=== PATIENT | male | born 1965 | race Caucasian/White ===

== ENCOUNTER 2019-04-12 16:01 | Emergency (ER) | payer BC, SELFPAY ==
[2019-04-12 16:10] VITALS: BP 136/96; PULSE 75; RESP 16; TEMP 36.5; O2SAT 99
[2019-04-12 17:13] LABS: Abs Immature Grans 0.01 k/cumm (0.0-0.09); Absolute Basophil Count 0.03 k/cumm (0.0-0.2); Absolute Eosinophil Count 0.11 k/cumm (0.0-0.7); Absolute Lymphocyte Count 1.66 k/cumm (1.2-3.4); Absolute Monocyte Count 0.75 k/cumm (0.11-0.7); Absolute Neutrophil Count 5.93 k/cumm (1.2-6.7); Basophils % 0.4; Eosinophils % 1.3; HCT 46.8 % (40.0-50.0); HGB 16.4 g/dL (13.5-17.5); Immature Grans % 0.1; Lymphocytes % 19.6; Mean Corpuscular Hemoglobin 31.7 pg (27.0-33.0); Mean Corpuscular Volume 90.3 fL (80-95); Mean Platelet Volume 11.3 fL (8.0-11.0); Monocytes % 8.8; Neutrophils % 69.8; Platelet Count 188 x1000/uL (130-400); RBC 5.18 m/cumm (4.50-6.00); RBC Distribution Width 12.8 % (11.8-14.1); White Blood Cell Count 8.49 k/cumm (4.4-10.8)
[2019-04-12 17:22] LABS: C-Reactive Protein 1.36 mg/dL (0.0-0.3)
[2019-04-12 17:25] LABS: PTT Activated 25.6 sec (21.0-31.4); Prothrombin Time 10.1 sec (9.3-11.0)
[2019-04-12 17:26] LABS: ALT 23 U/L (12-78); AST 11 U/L (15-37); Albumin 4.3 g/dL (3.4-5.0); Alkaline Phosphatase 120 U/L (46-116); Anion Gap 10.3 mmol/L (3-11); BUN 27 mg/dL (7-18); Bilirubin, Total 0.6 mg/dL (0.2-1.0); CO2 27.7 mmol/L (21.0-32.0); CREATININE 0.89 mg/dL (0.70-1.30); Calcium 9.4 mg/dL (8.5-10.1); Chloride 103 mmol/L (98-107); Glucose 101 mg/dL (70-100); Potassium 3.7 mmol/L (3.5-5.1); Sodium 141 mmol/L (136-145); Total Protein 7.9 g/dL (6.4-8.2)
[2019-04-12 17:55] LABS: ESR 17 mm/hr (1-20)
--- NOTE | 2019-04-12 18:46 | ED.GENADUL_ITS ---
Discharge Plan Disposition Patient Disposition: HOME Condition: Stable Discharge Details Chief Complaint: Orthopedic Clinical Impression: Right shoulder pain, Rash and nonspecific skin eruption Primary Care Provider: Katelynn Dial ED Provider: Choco Adame Home Meds and New Rx's Prescriptions: New doxycycline hyclate 100 mg tablet 100 mg PO BID 14 Days Qty: 28 RF: 0 cephalexin [Keflex] 500 mg capsule 500 mg PO QID 7 Days Qty: 28 RF: 0 Discharge Instructions Instructions: Acute Rash (ED), Shoulder Pain (ED) Additional Instructions: Please take antibiotics as prescribed and follow-up with your primary care provider for reassessment as needed. Return to the emergency department for any new or significant worsening. Otherwise take anabolic's as prescribed Referrals: Katelynn Dial, CHIEF BUSINESS OFFICER [Primary Care Provider] - 1 week (As needed for reassessment or if not improving) Discharge Data Discharge Date/Time-TO BE ENTERED AT DEPARTURE: 04/12/19 18:58 Medical Decision Making Patient presenting the emergency department for chief complaint of right shoulder pain. Patient denies any injury or trauma that he knows. Patient states that pain started 5 days ago with discomfort to the superior aspect of the shoulder where he thought he strained a muscle. Then over the last couple days he has noticed increased discomfort and pain. He states with light touch it feels itchy otherwise pain was severe stinging deep touch. Physical exam shows that patient has painful but full range of motion of right upper extremity. He has a mild erythematous rash that encompasses the shoulder and anterior upper chest wall and posterior chest. Please see exam for visual picture of this area of erythema. This does not appear consistent with shingles but question of cellulitis versus tickborne illness causing myalgias and rash. Plan to check labs. Labs reviewed and show no leukocytosis, nondiagnostic CMP, mildly elevated CRP at 1.36 and ESR within normal range. Given unremarkable labs I do feel that patient is able to be safely discharged but I do feel this is a odd rash. Given question of differential diagnosis to include tickborne illness versus cellulitis due to this patient placed up on doxycycline and Keflex pending tickborne panel. Return precautions were discussed and patient clearly states understanding for worsening rapid spread of rash fever chills that he should return. Otherwise patient to follow-up with primary care provider for reassessment HPI General Mode of arrival: ambulatory . Date/Time Provider Initiated Documentation: 04/12/19 16:23 . Limitations to Documentation: no limitations . Information obtained by: patient and RN notes reviewed . History of Present Illness 53 year old M presents to the emergency department with the chief complaint of Right shoulder pain, with intensity rated at 7. Quality is described as aching, and is localized to the right. Patient started experiencing this day(s) (5) and it has been constant. No relieving factors improve symptom(s), No exacerbating factors reported . Patient notes no other symptoms.. Patient did receive the following treatments prior to arrival, none Related Data Home Medications Medication Instructions Recorded Confirmed cephalexin [Keflex] 500 mg PO QID 7 Days #28 cap 04/12/19 doxycycline hyclate 100 mg PO BID 14 Days #28 tab 04/12/19 Previous Rx's Medication Instructions Recorded cephalexin [Keflex] 500 mg PO QID 7 Days #28 cap 04/12/19 doxycycline hyclate 100 mg PO BID 14 Days #28 tab 04/12/19 Allergies Allergy/AdvReac Type Severity Reaction Status Date / Time No Known Allergies Allergy Unverified 02/22/16 13:12 General Stated Complaint: Orthopedic GALE: 3 Review of Systems Constitutional Denies chills and Denies fever(s) Cardiovascular Denies chest pain and Denies dyspnea Respiratory Denies dyspnea Musculoskeletal Reports as per HPI, Reports myalgias, Denies numbness, Denies stiffness and Denies tingling Integumentary/Breasts Reports erythema (On affected shoulder) Neurologic Denies numbness and Denies tingling [facility] Surgical History Repair of inguinal hernia (09/04/95) Family History Mother No problems noted. Father Essential hypertension Heart disease Hyperlipidemia Sister Mental disorder Grandfather Heart disease Other COPD (chronic obstructive pulmonary disease) Social History Smoking/Tobacco Use Status: Never Alcohol Intake: never Drug use: Never Do you feel safe at home: Yes Do you feel safe in your relationship?: Yes Exam Const General: cooperative and no acute distress Orientation: alert, awake and oriented x3 Resp Effort & Inspection: normal respiratory effort and able to speak in complete sentences Auscultation: clear to auscultation bilaterally Cardio Rate: regular rate Rhythm: regular rhythm Heart Sounds: S1 normal Extrem Right upper extremity: no joint enlargement and shoulder/upper arm Details: tenderness (To palpation of deltoid muscle), axillary nerve sensory function normal, normal ROM, abnormal ROM Details: pain with active ROM and other (Patient has erythema of the right anterior and posterior shoulder and back); no abrasions and no unusual warmth Shoulder/upper arm images: 1. Mild erythema with sensitivity to touch 2. Mild erythema to with sensitivity to touch Course Vital Signs Temperature 36.5 C 04/12/19 16:10 Pulse 75 04/12/19 16:10 Respiratory Rate 16 04/12/19 16:10 Blood Pressure 136/96 H 04/12/19 16:10 Pulse Oximetry 99 04/12/19 16:10 Temperature 36.5 C 04/12/19 16:10 Temperature Source Skin 04/12/19 16:10 Pulse 75 04/12/19 16:10 Respiratory Rate 16 04/12/19 16:10 Respiratory Effort Non-Labored 04/12/19 16:15 Blood Pressure 136/96 H 04/12/19 16:10 Blood Pressure Position Sitting 04/12/19 16:10 Pulse Oximetry 99 04/12/19 16:10 Oxygen Delivery Method Room Air 04/12/19 16:10 Oxygen Flow Rate 0 04/12/19 16:10 Lab/Test Results Lab/Test Results: Laboratory Tests Range/Units 04/12/19 04/12/19 04/12/19 17:00 17:00 17:00 WBC (4.4-10.8) k/cumm 8.49 RBC (4.50-6.00) m/cumm 5.18 Hgb (13.5-17.5) g/dL 16.4 Hct (40.0-50.0) % 46.8 MCV (80-95) fL 90.3 MCH (27.0-33.0) pg 31.7 MCHC (32.0-36.0) g/dL 35.0 RDW (11.8-14.1) % 12.8 Plt Count (130-400) x1000/uL 188 MPV (8.0-11.0) fL 11.3 H Immature Gran % 0.1 Neutrophils % 69.8 Lymphocytes % 19.6 Monocytes % 8.8 Eosinophils % 1.3 Basophils % 0.4 Absolute Neutrophils (1.2-6.7) k/cumm 5.93 Absolute Lymphocytes (1.2-3.4) k/cumm 1.66 Absolute Monocytes (0.11-0.7) k/cumm 0.75 H Absolute Eosinophils (0.0-0.7) k/cumm 0.11 Absolute Basophils (0.0-0.2) k/cumm 0.03 ESR (1-20) mm/hr PT (9.3-11.0) sec 10.1 INR (0.9-1.1) 1.0 APTT (21.0-31.4) sec 25.6 Sodium (136-145) mmol/L 141 Potassium (3.5-5.1) mmol/L 3.7 Chloride (98-107) mmol/L 103 Carbon Dioxide (21.0-32.0) mmol/L 27.7 Anion Gap (3-11) mmol/L 10.3 BUN (7-18) mg/dL 27 H Creatinine (0.70-1.30) mg/dL 0.89 Estimated GFR/1.73 m2 (mL/min/1.73m2) >= 60.00 Glucose (70-100) mg/dL 101 H Calcium (8.5-10.1) mg/dL 9.4 Total Bilirubin (0.2-1.0) mg/dL 0.6 AST (15-37) U/L 11 L ALT (12-78) U/L 23 Alkaline Phosphatase (46-116) U/L 120 H C-Reactive Protein (0.0-0.3) mg/dL Total Protein (6.4-8.2) g/dL 7.9 Albumin (3.4-5.0) g/dL 4.3 Range/Units 04/12/19 04/12/19 17:00 17:00 WBC (4.4-10.8) k/cumm RBC (4.50-6.00) m/cumm Hgb (13.5-17.5) g/dL Hct (40.0-50.0) % MCV (80-95) fL MCH (27.0-33.0) pg MCHC (32.0-36.0) g/dL RDW (11.8-14.1) % Plt Count (130-400) x1000/uL MPV (8.0-11.0) fL Immature Gran % Neutrophils % Lymphocytes % Monocytes % Eosinophils % Basophils % Absolute Neutrophils (1.2-6.7) k/cumm Absolute Lymphocytes (1.2-3.4) k/cumm Absolute Monocytes (0.11-0.7) k/cumm Absolute Eosinophils (0.0-0.7) k/cumm Absolute Basophils (0.0-0.2) k/cumm ESR (1-20) mm/hr 17 PT (9.3-11.0) sec INR (0.9-1.1) APTT (21.0-31.4) sec Sodium (136-145) mmol/L Potassium (3.5-5.1) mmol/L Chloride (98-107) mmol/L Carbon Dioxide (21.0-32.0) mmol/L Anion Gap (3-11) mmol/L BUN (7-18) mg/dL Creatinine (0.70-1.30) mg/dL Estimated GFR/1.73 m2 (mL/min/1.73m2) Glucose (70-100) mg/dL Calcium (8.5-10.1) mg/dL Total Bilirubin (0.2-1.0) mg/dL AST (15-37) U/L ALT (12-78) U/L Alkaline Phosphatase (46-116) U/L C-Reactive Protein (0.0-0.3) mg/dL 1.36 H Total Protein (6.4-8.2) g/dL Albumin (3.4-5.0) g/dL
[2019-04-12] MEDS: Cephalexin 500 MG CAP PO (18:57)
[2019-04-12] MEDS: Doxycycline Hyclate 100 MG CAP PO (18:57)
[2019-04-12 18:58] VITALS: BP 136/96; PULSE 75; RESP 16; TEMP 36.5; O2SAT 99
--- NOTE | 2019-04-13 00:18 | NUR.NOTE ---
faxed and noted referalNursing Note:
[2019-04-15 12:45] LABS: Lyme Ab w Rflx to Lyme Confirm Positive
[2019-04-15 23:21] LABS: Anaplasma phagocytophilum Negative (Negative); B. miyamotoi PCR Negative (Negative); Babesia divergens/MO-1 Negative (Negative); Babesia duncani Negative (Negative); Babesia microti Negative (Negative); Ehrlichia chaffeensis Negative (Negative); Ehrlichia ewingii/canis Negative (Negative); Ehrlichia muris eauclairensis Negative (Negative)
[2019-04-16 15:22] LABS: IgG Band(s) SEE COMMENTS kDa; IgG Immunoblot Negative; IgM Band(s) p41 kDa; IgM Immunoblot Negative; Immunoblot Interpretation SEE COMMENTS
== END 2019-04-12 18:58 | disposition home or self-care (01) ==
PROVIDERS: Emergency Provider Nurse Practitioner Family; PCP Nurse Practitioner Family
DX: M25.511 Pain in right shoulder (principal); R21 Rash and other nonspecific skin eruption
CPT/HCPCS: 36415; 80053; 85652; 86617; 87798; 99283; 85025; 85610; 85730; 86140; 86618

== ENCOUNTER 2022-03-07 17:30 | Emergency (ER) | payer BC, SELFPAY ==
[2022-03-07] VITALS (18 sets, daily range): BP systolic 104–153; BP diastolic 65–90; PULSE 55–86; RESP 14–23; TEMP 35.9; O2SAT 95–100
--- NOTE | 2022-03-07 17:25 | W.ED.GENAD ---
Discharge Plan Disposition Patient Disposition: HOME Condition: Improving Discharge Details Clinical Impression: Left flank pain, Hydroureter on left, Hydronephrosis of left kidney Primary Care Provider: Katelynn Dial ED Provider: Swathi Acevedo Home Meds and New Rx's Prescriptions: No Action No Known Home Meds Discharge Instructions Instructions: Flank Pain (ED) Additional Instructions: Based on your lab work and imaging today, it is suspected that you had a recently passed kidney stone. Your urine has been sent for a culture to rule out a possible urinary tract infection but it is not suspected that you have a urinary tract infection at this time. Drink plenty of fluids and get plenty of rest. Alternate tylenol and motrin as needed and directed for pain. Take the oxycodone for pain not relieved with Tylenol or Motrin. You have been placed on care management list for a follow-up appointment with the urologist Dr. Bill. Return immediately to the emergency department if you develop any worsening or new concerning symptoms. Referrals: Ramos Bill MD [ [facility] STAFF PHYSICIAN] - Discharge Data Discharge Date/Time-TO BE ENTERED AT DEPARTURE: 03/07/22 19:56 Discharge Physician: Swathi Acevedo Medical Decision Making 56-year-old male with a history of kidney stones and hernia repair presents with left flank and left lower quadrant abdominal pain for the past hour. Patient appears uncomfortable holding his left lower quadrant. His abdomen is otherwise soft. EKG done on arrival per nursing due to patient age and report of abdominal pain which notes a rate of 63, sinus, no STEMI and nondiagnostic. Suspect kidney stone. Also consider diverticulitis, gastroenteritis, UTI, pyelonephritis. History and presentation does not appear consistent with PE, dissection. We will place an IV, bolus IV fluids, screening labs, urinalysis, CT renal colic given IV Toradol and Zofran. Labs and imaging reviewed. Normal white blood cell count. Normal renal function. Lipase normal. Urinalysis notes 10-20 RBCs, 5-10 WBCs but with negative bacteria, negative nitrite, negative leukocyte esterase. Urine culture sent. CT notes IMPRESSION: 1. Left hydroureteronephrosis. 2. Negative for obstructing stone at present. A recently passed stone is considered. Pyelonephritis is not excluded. 3. Nonobstructive stones noted bilaterally. Patient reassessed and he feels much better and would like to go home. Discussed that his presentation is likely consistent with recently passed stone. As his urinalysis is negative for bacteria and nitrite with no UTI symptoms reported fever and normal white blood cell count, will hold on antibiotics at this time the patient is agreeable. He was placed on Dr. Bill's list for follow-up. He was given oxycodone to take as needed for breakthrough pain. He was informed he will be notified if urine culture positive. Usual and customary return precautions given prior to discharge. Medical Records Medical records reviewed: Yes I reviewed the patient's medical records. Imaging Data Radiologic Study: Radiologist's impression: CT Abdomen And Pelvis Without Contrast Exam date and time: 03/07/2022 6:35 PM Age: 56 years old Clinical indication: Other: Llq/l flank pain, R/O kidney stone TECHNIQUE: Imaging protocol: Computed tomography of the abdomen and pelvis without contrast. Radiation optimization: All CT scans at this facility use at least one of these dose optimization techniques: automated exposure control; mA and/or kV adjustment per patient size (includes targeted exams where dose is matched to clinical indication); or iterative reconstruction. COMPARISON: No relevant prior studies available. FINDINGS: Lungs: Basilar reticulation and/or edema. Liver: Unremarkable noncontrast liver imaging. A cyst or hemangioma is noted on the right, 2.2 cm. Gallbladder and bile ducts: Normal. No calcified stones. No ductal dilation. Pancreas: Normal. No ductal dilation. Spleen: Normal. No splenomegaly. Adrenal glands: Normal. No mass. Kidneys and ureters: Mild left hydronephrosis and perinephric fat stranding. Dilated left ureter. Nonobstructive stone in the left renal pelvis measures 5 mm diameter. No right hydronephrosis. Nonobstructive stone at the right inferior pole calyx measures 4 mm diameter. Stomach and bowel: Unremarkable stomach. Nondilated small bowel. Cecum is rotated into the right upper quadrant. Negative for inflammatory changes around the colon. Scattered diverticula noted in the descending and sigmoid colon. No inflammatory changes observed around the colon. Appendix: No evidence of appendicitis. Intraperitoneal space: No free fluid. No free air. No abscess. Vasculature: No significant vascular calcifications. No aneurysm. Lymph nodes: Unremarkable. No enlarged lymph nodes. Urinary bladder: Normal. Normal thin welsh. No stones. Reproductive: Unremarkable as visualized. Bones/joints: Unremarkable. No acute fracture. Soft tissues: Unremarkable. IMPRESSION: 1. Left hydroureteronephrosis. 2. Negative for obstructing stone at present. A recently passed stone is considered. Pyelonephritis is not excluded. 3. Nonobstructive stones noted bilaterally. Lab Data Lab results reviewed: Yes I reviewed the patient's lab results. Labs: 03/07/22 18:52 Urine - Reflex from Ua Urine Culture - Preliminary Gram Positive Rupa,Mixed Laboratory Tests Range/Units 03/07/22 03/07/22 03/07/22 17:53 17:55 18:52 WBC (4.4-10.8) 10^3/uL 10.74 RBC (4.36-5.78) 10^6/uL 5.37 Hgb (13.5-17.5) g/dL 17.0 Hct (40.0-50.0) % 49.4 MCV (80-95) fL 92 MCH (27.0-33.0) pg 31.7 MCHC (32.0-36.0) % 34.4 RDW (11.8-14.1) % 12.0 Plt Count (130-400) 10^3/uL 198 MPV (8.0-11.0) fL 11.2 H Immature Gran % 0.3 Neutrophils % 77.0 Lymphocytes % 15.3 Monocytes % 6.3 Eosinophils % 0.6 Basophils % 0.5 Nucleated RBC % (0.0-0.3) % 0.0 Absolute Neutrophils (1.2-6.7) 10^3/uL 8.28 H Absolute Lymphocytes (1.2-3.4) 10^3/uL 1.64 Absolute Monocytes (0.1-0.8) 10^3/uL 0.68 Absolute Eosinophils (0.0-0.7) 10^3/uL 0.06 Absolute Basophils (0.0-0.2) 10^3/uL 0.05 Sodium (136-145) mmol/L 142 Potassium (3.5-5.1) mmol/L 4.4 Chloride (98-107) mmol/L 104 Carbon Dioxide (21.0-32.0) mmol/L 28.6 Anion Gap (3-11) mmol/L 9.4 BUN (7-18) mg/dL 20 H Creatinine (0.70-1.30) mg/dL 1.1 Estimated GFR/1.73 m2 (mL/min/1.73m2) >= 60.00 Glucose (74-106) mg/dL 123 H Calcium (8.5-10.1) mg/dL 9.5 Total Bilirubin (0.2-1.0) mg/dL 0.5 AST (15-37) U/L 21 ALT (16-63) U/L 19 Alkaline Phosphatase (46-116) U/L 94 Total Protein (6.4-8.2) g/dL 7.6 Albumin (3.4-5.0) g/dL 4.4 Lipase (73-393) U/L 70 Urine Color (Yellow) Yellow Urine Clarity (Clear) Clear Urine pH (5-8) 7.5 Ur Specific [place] (1.005-1.025) 1.020 Urine Protein (Negative) mg/dL Negative Urine Ketones (Negative) mg/dL 15 H Urine Blood (Negative) Moderate H Urine Nitrite (Negative) Negative Urine Bilirubin (Negative) Negative Urine Urobilinogen (Up TO 0.2) EU/dL 1.0 H Ur Leukocyte Esterase (Negative) Negative Urine RBC (0-2) HPF 10-20 H Urine WBC (0-5) HPF 5-10 Ur Epithelial Cells (Negative) HPF Negative Urine Crystals (Negative) HPF Negative Urine Bacteria (Negative) HPF Negative Urine Casts (Negative) LPF Negative Urine Mucus (Negative) Negative Urine Other (Negative) Negative Ur Culture Indicated? Yes Urine Glucose (Negative) mg/dL Negative ECG Data Attestation: I personally reviewed and interpreted this ECG (s) as follows: Interpretation: Rate of 63, sinus, no stemi. HPI General Mode of arrival: ambulatory. Date/Time Provider Initiated Documentation: 03/07/22 17:34. Limitations to Documentation: no limitations. Information obtained by: patient. HPI Narrative: Patient is a 56-year-old male with a history of kidney stones and hernia repair presents with left flank and left lower quadrant abdominal pain for the past hour. Patient admits to nausea but denies any vomiting. He denies fever, no urinary symptoms or diarrhea Related Data Home Medications Medication Instructions Recorded Confirmed Unknown [No Known Home Meds] 02/27/20 02/27/20 Allergies Allergy/AdvReac Type Severity Reaction Status Date / Time No Known Allergies Allergy Verified 02/27/20 08:19 General Stated Complaint: FlankPain GALE: 3 Review of Systems All systems reviewed & are unremarkable except as noted in HPI and below Constitutional Constitutional: Denies chills, Denies excessive sweating, Denies fatigue, Denies fever(s), Denies weakness and Denies weight loss Eyes Eyes: Reports system reviewed and no additional complaints, except as documented and Denies blurry vision ENT Ears, Nose, Mouth, and Throat: Denies vertigo, Denies dizziness, Denies otalgia, Denies nasal congestion, Denies sore throat and Denies throat swelling Cardiovascular Cardiovascular: Denies chest pain, Denies syncope, Denies rapid heart rate and Denies dyspnea Respiratory Respiratory: Denies chest congestion, Denies cough, Denies pain on inspiration and Denies dyspnea Gastrointestinal Gastrointestinal: Reports abdominal pain, Denies diarrhea and Denies vomiting Genitourinary Genitourinary: Denies hematuria, Denies dysuria and Reports flank pain Musculoskeletal Musculoskeletal: Denies back pain and Denies joint swelling Integumentary/Breasts Skin/Breast: Denies lesions and Denies rash Neurologic Neurologic: Denies behavioral changes, Denies confusion, Denies vertigo, Denies dizziness, Denies syncope, Denies localized weakness and Denies weakness Psychiatric Psychiatric: Denies behavioral changes, Denies confusion and Denies depression Endocrine Endocrine: Denies excessive sweating and Denies fatigue Hematologic/Lymphatic Hematologic/Lymphatic: Denies easy bruising and Denies lymphadenopathy Allergic/Immunologic Allergic/Immunologic: Denies throat swelling PFSH All Active Problems (Updated 03/07/22 @ 19:36 by Swathi Acevedo DO) Left flank pain (Acute) Hydroureter on left (Acute) Hydronephrosis of left kidney (Acute) Anxiety (Chronic) Hyperlipidemia, unspecified (Chronic) Tobacco use disorder (Chronic) Chewing tobacco Surgical History Repair of inguinal hernia (09/04/95) Family History Mother , COPD at age 50. No problems noted. Father , ?? Essential hypertension Heart disease Hyperlipidemia Sister Mental disorder Anxiety, paranoia Grandfather Heart disease Other COPD (chronic obstructive pulmonary disease) Social History Smoking/Tobacco Use Status: Never Smokeless tobacco user: chewing tobacco Smoking risk assessment performed?: Yes Alcohol Intake: never Drug use: Never Adopted: No Foster care: No Housing: house Number of Children: 1 Communication Needs: Corrective Lenses Education Level: high school current occupation: [employer] attendant Pets and animals: Yes What type of physical activity do you participate in: walking and other Details: motocross Frequency: daily Do you feel safe at home: Yes Do you feel safe in your relationship?: Yes Exam Const General: cooperative and uncomfortable Orientation: alert, awake and oriented x3 HENMT Head: normal to inspection Ears: hearing grossly normal bilaterally and external ears normal General nose exam: external nose normal Face and sinus: normal facial exam Mouth: oral mucosae normal Eyes General: appearance normal, both eyes and all related structures Eyelids: eyelids normal EOM: EOM intact bilaterally Neck Neck: normal visual inspection Lymphatic: no lymphadenopathy noted Chest Chest: normal inspection of the chest Resp Effort & Inspection: normal respiratory effort and able to speak in complete sentences Auscultation: clear to auscultation bilaterally Cardio Rate: regular rate Rhythm: regular rhythm GI Inspection: normal to inspection Palpation: soft, not firm, no guarding, no hepatosplenomegaly, no masses and nontender Auscultation: normal bowel sounds Back/Spine/Pelvis Back: no CVA tenderness Skin General skin exam: no rashes or lesions noted Neuro General: patient alert and patient awake Cognition: normal cognition Speech: speech normal Gait: normal gait Motor: muscle tone normal throughout Sensory Exam: no sensory deficits noted Extrem General: normal to inspection, full ROM and capillary refill normal Psych Appearance: grossly normal Mental Status: mental status grossly normal Speech and Movement: speech and movement normal Affect: normal affect Thought Process: normal
--- NOTE | 2022-03-07 17:30 | RT.EKG_ITS ---
APPROVED REPORT Exam: Resting ECG Reason for Exam: flank pain Patient Location: E HR:63 bpm ECG Measurements Heart Rate 63 AXIS CA 140 P 37 QRSd 90 QRS 18 QT 367 T 43 QTc 376 Conclusion Sinus rhythm...normal P axis, V-rate 60- 99 Anterior infarct, age indeterminate...Q >35mS, T neg, in V2-V5. Sinus. No STEMI. I have reviewed and interpreted ECG and agree with software generated interpretation.
--- NOTE | 2022-03-07 18:00 | DI.CT_ITS ---
Exam(s) CT RENAL COLIC WO EXAM: CT RENAL COLIC WO CLINICAL HISTORY: LLQ/L flank pain, r/o kidney stone. TECHNIQUE: Imaging Protocol: Axial computed tomography images with coronal and sagittal reformatted images were created and reviewed CONTRAST MATERIAL: Intravenous: none Oral: None COMPARISON: No exams were available for comparison FINDINGS: VISUALIZED LUNG BASES: Increased dependent markings in both lung bases. No associated pleural effusi ons.. ABDOMEN: There is no ascites. LIVER: There is a solitary well-defined hypodensity in the right hepatic lobe measuring 2.3 by 1.7 cm . Has appearance of benign cyst. No other obvious focal hepatic findings in the right lobe. There is a smaller cyst in the left lobe measuring 5 millimeters and a small calcified granuloma also noted in the posterior aspect left lobe. GALLBLADDER/BILIARY: No obvious gallbladder pathology. CBD is not dilated. PANCREAS: No evidence of pancreatic mass nor dilatation of the pancreatic duct. SPLEEN: Spleen is not enlarged. No obvious intrasplenic lesions. ADRENALS: There are no significant adrenal masses. KIDNEYS:There is a 5 millimeter nonobstructive calculus in lower pole the right kidney. No other foc al right kidney findings. There is a 6 millimeter calculus in the left renal pelvis. There is a 1.3 cm cyst in the inferior pole left kidney. There is perinephric streaking around the left kidney and mild hydronephrosis-hydroureter on the left side without evidence of a calculus in the dilated left ureter nor within the urinary bladder. ABDOMINAL AORTA: Abdominal aorta is not enlarged. LYMPH NODES: There is no retroperitoneal nor paraaortic adenopathy. ABDOMINAL WALL: No evidence of significant anterior abdominal wall nor inguinal hernia. GI: There is no evidence of bowel obstruction, free air, nor abscess. PELVIS: LYMPH NODES: There is no intrapelvic nor inguinal adenopathy. GI: No evidence of appendicitis.Sigmoid diverticuli but no evidence of obvious acute diverticulitis. URINARY BLADDER: No calculi nor obvious masses evident REPRODUCTIVE: Prostate mildly enlarged. Seminal vesicles slightly prominent. OSSEOUS: No significant osseous lesions. IMPRESSION: 1. There is a 6 millimeter nonobstructive calculus in left renal pelvis. However, there is hydroneph rosis and hydroureter on the left side without evidence of a radiopaque calculus in the lower left ur eter nor within the urinary bladder. There is also some ipsilateral left perinephric streaking. The se findings may be related to a recently passed stone and/or infection such as pyelonephritis. 2. There is a nonobstructive 5 millimeter calculus in the lower pole of the opposite-right kidney. 3. There is a 1.3 cm cyst in the inferior pole of the left kidney. Benign-appearing findings in the liver as described above. RADIATION DOSE DELIVERED: 852.6mGy.cm Total DLP DATA REPOSITORY: All CT scans at this facility are submitted to the National Radiology Data Registry (NRDR) Dose Index Registry (DIR) with the [employer] (ACR). RADIATION OPTIMIZATION: All CT scans at this facility use at least one of these dose optimization te chniques: automated exposure control; mA and/or kV adjustment per patient size (includes targeted exa ms where dose is matched to clinical indication); or iterative reconstruction.
[2022-03-07 18:02] LABS: Abs Immature Grans 0.03 10^3/uL (0.0-0.06); Absolute Basophil Count 0.05 10^3/uL (0.0-0.2); Absolute Eosinophil Count 0.06 10^3/uL (0.0-0.7); Absolute Lymphocyte Count 1.64 10^3/uL (1.2-3.4); Absolute Monocyte Count 0.68 10^3/uL (0.1-0.8); Absolute Neutrophil Count 8.28 10^3/uL (1.2-6.7); Basophils % 0.5; Eosinophils % 0.6; HCT 49.4 % (40.0-50.0); Immature Grans % 0.3; Lymphocytes % 15.3; MCH 31.7 pg (27.0-33.0); MCHC 34.4 % (32.0-36.0); MCV 92 fL (80-95); MPV 11.2 fL (8.0-11.0); Monocytes % 6.3; Platelet Count 198 10^3/uL (130-400); RBC 5.37 10^6/uL (4.36-5.78); RDW-SD 40.5 fL; WBC 10.74 10^3/uL (4.4-10.8)
[2022-03-07] MEDS: Ondansetron 4 MG/2 ML VIAL IVP (18:14)
[2022-03-07] MEDS: Normal Saline 1,000 ML 1000 ML IV (18:14)
[2022-03-07] MEDS: Ketorolac 30 MG/ML VIAL IVP (18:14)
[2022-03-07 18:19] LABS: ALT 19 U/L (16-63); AST 21 U/L (15-37); Albumin 4.4 g/dL (3.4-5.0); Alkaline Phosphatase 94 U/L (46-116); Anion Gap 9.4 mmol/L (3-11); BUN 20 mg/dL (7-18); Bilirubin, Total 0.5 mg/dL (0.2-1.0); CO2 28.6 mmol/L (21.0-32.0); CREATININE 1.1 mg/dL (0.70-1.30); Calcium 9.5 mg/dL (8.5-10.1); Chloride 104 mmol/L (98-107); Glucose 123 mg/dL (74-106); Lipase 70 U/L (73-393); Potassium 4.4 mmol/L (3.5-5.1); Sodium 142 mmol/L (136-145); Total Protein 7.6 g/dL (6.4-8.2)
--- NOTE | 2022-03-07 19:05 | DI.VRAD_ITS ---
PROCEDURE INFORMATION: Exam: CT Abdomen And Pelvis Without Contrast Exam date and time: 03/07/2022 6:35 PM Age: 56 years old Clinical indication: Other: Llq/l flank pain, R/O kidney stone TECHNIQUE: Imaging protocol: Computed tomography of the abdomen and pelvis without contrast. Radiation optimization: All CT scans at this facility use at least one of these dose optimization techniques: automated exposure control; mA and/or kV adjustment per patient size (includes targeted exams where dose is matched to clinical indication); or iterative reconstruction. COMPARISON: No relevant prior studies available. FINDINGS: Lungs: Basilar reticulation and/or edema. Liver: Unremarkable noncontrast liver imaging. A cyst or hemangioma is noted on the right, 2.2 cm. Gallbladder and bile ducts: Normal. No calcified stones. No ductal dilation. Pancreas: Normal. No ductal dilation. Spleen: Normal. No splenomegaly. Adrenal glands: Normal. No mass. Kidneys and ureters: Mild left hydronephrosis and perinephric fat stranding. Dilated left ureter. Nonobstructive stone in the left renal pelvis measures 5 mm diameter. No right hydronephrosis. Nonobstructive stone at the right inferior pole calyx measures 4 mm diameter. Stomach and bowel: Unremarkable stomach. Nondilated small bowel. Cecum is rotated into the right upper quadrant. Negative for inflammatory changes around the colon. Scattered diverticula noted in the descending and sigmoid colon. No inflammatory changes observed around the colon. Appendix: No evidence of appendicitis. Intraperitoneal space: No free fluid. No free air. No abscess. Vasculature: No significant vascular calcifications. No aneurysm. Lymph nodes: Unremarkable. No enlarged lymph nodes. Urinary bladder: Normal. Normal thin welsh. No stones. Reproductive: Unremarkable as visualized. Bones/joints: Unremarkable. No acute fracture. Soft tissues: Unremarkable. IMPRESSION: 1. Left hydroureteronephrosis. 2. Negative for obstructing stone at present. A recently passed stone is considered. Pyelonephritis is not excluded. 3. Nonobstructive stones noted bilaterally. Dictated and Authenticated by: Gerald Bill MD. Ordering:HERNANDEZ Echevarria MD
[2022-03-07 19:12] LABS: Bilirubin Negative (Negative); Blood Moderate (Negative); Clarity Clear (Clear); Glucose Negative (Negative); Ketones 15 mg/dL (Negative); Leukocyte Esterase Negative (Negative); Nitrite Negative (Negative); pH 7.5 (5-8)
[2022-03-07 19:19] LABS: Bacteria Negative HPF (Negative); C & S Indicated? Yes; Casts Negative LPF (Negative); Crystals Negative HPF (Negative); Epithelial Cells Negative HPF (Negative); Mucus Negative (Negative); Other Cells Negative (Negative)
== END 2022-03-07 19:56 | disposition home or self-care (01) ==
PROVIDERS: Emergency Provider Physician Assistant; PCP Nurse Practitioner Family
DX: N13.2 Hydronephrosis with renal and ureteral calculous obstruction (principal); F17.220 Nicotine dependence, chewing tobacco, uncomplicated; R82.71 Bacteriuria
CPT/HCPCS: 80053; 83690; 93005; 96361; 96374; 96375; 99284; 74176; 81003; 81015; 85025; 87086; 93010; J1885; J2405

== ENCOUNTER 2025-03-06 15:43 | Outpatient (REF) | payer BC, SELFPAY | END 2025-03-06 15:44 | disposition home or self-care (01) | LOC: LBN 15:43 | PROVIDERS: Visit Provider Physician Assistant Medical | DX: L02.611 Cutaneous abscess of right foot (principal) | CPT/HCPCS: 87077; 87070; 87186; 87205 ==

== ENCOUNTER 2025-03-10 11:38 | Emergency (ER) | payer BC, SELFPAY ==
[2025-03-10 11:43] VITALS: BP 154/89; PULSE 71; RESP 16; TEMP 36.3; O2SAT 97
--- NOTE | 2025-03-10 13:19 | W.ED.GENAD ---
Discharge Plan Disposition Patient Disposition: Home Condition: Stable Discharge Details Clinical Impression: Cellulitis of fourth toe of right foot Primary Care Provider: Unknown,Unknown ED Provider: Brianda Reeder Home Meds and New Rx's Prescriptions: Continued linezolid 600 mg tablet 600 mg PO BID Patient Comments: TAKE ONE TABLET BY MOUTH EVERY 12 HOURS FOR 10 DAYS Discharge Instructions Instructions: Cellulitis (Skin Infection), Adult ED Additional Instructions: Please continue taking the previously prescribed linezolid as directed. Allow to air out at least 20 minutes a day. Please keep a dry dressing on the toe otherwise. You are placed on a care management list to get a follow-up appointment with podiatry which is a endocrinology specialist within a week. If you have an appointment with your PCP or express care, before 1 week please keep that appointment for recheck. No more soaking. You may clean with soap and water gently every day. Follow up with primary care provider/podiatry in 3-5 days. Return to ED sooner if any worsening red streaks up your foot, swelling spreading redness, if your toe turns black, fever chills or other concerns. Thank you for allowing us to care for you today. Referrals: Tanna Olivarez DPM [[facility]AFF PHYSICIAN, Podiatry] - 1 week Referral Note: ER follow up Clinical Impression: Cellulitis of fourth toe of right foot Discharge Data Discharge Date/Time-TO BE ENTERED AT DEPARTURE: 03/10/25 14:01 HPI General Mode of arrival: ambulatory. Date/Time Provider Initiated Documentation: 03/10/25 12:57. Limitations to Documentation: no limitations. Information obtained by: patient, RN notes reviewed and old records reviewed. HPI Narrative: 59-year-old male presents to the ER with a chief complaint of cellulitis recheck to his right fourth toe. Patient was seen at urgent care, was initially prescribed Augmentin and cephalexin the wound continued to get worse and the swelling, seen again and prescribed linezolid which she has been taking for the last 2 to 3 days. He reports improvement of the redness and swelling. He states that he has been soaking the toe up to 5 times daily and initially thought it was due to athlete's foot. Past medical history includes anxiety, smoker, hyperlipidemia. He lives in a camper and is an avid hiker. Related Data Home Medications ?Medication ?Instructions ?Recorded ?Confirmed linezolid 600 mg tablet 600 mg PO BID 03/10/25 03/10/25 Allergies Allergy/AdvReac Type Severity Reaction Status Date / Time No Known Allergies Allergy Verified 02/27/20 08:19 General Stated Complaint: Cellulitis GALE: 3 Review of Systems All systems reviewed & are unremarkable except as noted in HPI and below Integumentary/Breasts Skin/Breast: Reports as per HPI, Reports lesions, Reports erythema, Reports skin pain, Reports skin swelling and Reports wounds (Right fourth toe) Endocrine Endocrine: Reports other (Denies history of diabetes) Exam Extrem Right lower extremity: foot Details: abnormal to inspection Details: erythematous (Right fourth toe), tenderness, abnormal ROM of toe Details: pain with passive ROM Location: of the 4th digit and ecchymosis Ankle/foot/toe images:  1. Toe was erythemic, swollen, tender with palpation, does have a wound noted to the lateral aspect. No active draining at this time. No red streaks at the foot. Denies any pain with palpation dorsally or ventrally. Macerated webs in between toes Course Vital Signs Vital signs: Vital Signs Temperature 36.3 C L 03/10/25 11:43 Pulse 71 03/10/25 11:43 Respiratory Rate 16 03/10/25 11:43 Blood Pressure 154/89 H 03/10/25 11:43 Pulse Oximetry 97 03/10/25 11:43 Temperature 36.3 C L 03/10/25 11:43 Temperature Source Oral 03/10/25 11:43 Pulse 71 03/10/25 11:43 Respiratory Rate 16 03/10/25 11:43 Blood Pressure 154/89 H 03/10/25 11:43 Pulse Oximetry 97 03/10/25 11:43 Pain Level 3 03/10/25 11:43 Medical Decision Making 59-year-old male presents to the ER with a chief complaint of cellulitis recheck to his right fourth toe. Patient was seen at urgent care, was initially prescribed Augmentin and cephalexin the wound continued to get worse and the swelling, seen again and prescribed linezolid which she has been taking for the last 2 to 3 days. He reports improvement of the redness and swelling. He states that he has been soaking the toe up to 5 times daily and initially thought it was due to athlete's foot. He lives in a camper and is an avid hiker. On exam he does have some erythema, excoriation noted to the lateral aspect of the toe webbing, the digit is erythemic but no red streaks up the foot no tenderness he is afebrile. No active draining at this time. Instructed to continue the previously prescribed antibiotics as directed, keep the wound dry will we will apply a dry dressing here in the emergency department. I discussed at length home care including to stop soaking to allow to air dry at least 2 hours a day and to keep the toe wrapped. Will place a follow-up referral to PCP and podiatry for a recheck. Will give strict return instructions to return for any worsening swelling, red streaks, fever or chills or concerns. This text was generated using ANTERIOSation system, please disregard any oddities of phrase or misspellings. PFSH All Active Problems (Updated 03/10/25 @ 13:46 by Brianda Reeder NP) Cellulitis of fourth toe of right foot (Acute) Anxiety (Chronic) Hyperlipidemia, unspecified (Chronic) Tobacco use disorder (Chronic) Chewing tobacco Surgical History Repair of inguinal hernia (09/04/95) Family History Mother , COPD at age 50. No problems noted. Father , ?? 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
== END 2025-03-10 14:01 | disposition home or self-care (01) ==
LOC: ER 13:57
PROVIDERS: Emergency Provider Registered Nurse Emergency
DX: L03.031 Cellulitis of right toe (principal); F17.220 Nicotine dependence, chewing tobacco, uncomplicated
CPT/HCPCS: 99283

== ENCOUNTER 2025-08-18 15:34 | Emergency (ER) | payer BC, SELFPAY ==
[2025-08-18] VITALS (39 sets, daily range): BP systolic 69–112; BP diastolic 47–60; PULSE 86–108; RESP 13–26; TEMP 36.8; O2SAT 91–97
--- NOTE | 2025-08-18 15:52 | W.ED.GENAD ---
Discharge Plan Disposition Patient Disposition: Transfer-Acute Inpatient Care Specific Acute Inpt Facility: [facility] Condition: Stable Discharge Details Clinical Impression: Sepsis, Acute renal failure, Right ureteral calculus, Urinary tract infection Primary Care Provider: Unknown,Unknown ED Provider: Leonel Vizcarra Home Meds and New Rx's Prescriptions: No Action linezolid 600 mg tablet 600 mg PO BID Patient Comments: TAKE ONE TABLET BY MOUTH EVERY 12 HOURS FOR 10 DAYS HPI General Date/Time Provider Initiated Documentation: 08/18/25 15:37. HPI Narrative: 60 year-old male presents to ED today by POV/ambulating, sent from , with a chief complaint of LLQ abdominal pain, nausea/vomiting/diarrhea with onset Monday- 2 days ago. Quality described as feels similar to prior kidney stone episodes, and endorses fatigue tied to poor PO intake, no radiation to fever, chest pain, shortness of breath, black/bloody diarrhea, urinary retention, hematuria, altered mentation. Severity is described as moderate to severe. Palliating factors include nothing specific. Provoking factors include nothing specific. Patient not anticoagulated. Related Data Home Medications ?Medication ?Instructions ?Recorded ?Confirmed linezolid 600 mg tablet 600 mg PO BID 03/10/25 08/18/25 Allergies Allergy/AdvReac Type Severity Reaction Status Date / Time No Known Allergies Allergy Verified 08/18/25 15:47 General Stated Complaint: Abd Prob GALE: 2 Review of Systems All systems reviewed & are unremarkable except as noted in HPI and below Exam Narrative Exam Narrative: GENERAL APPEARANCE: Well-nourished, toxic, awake and alert, atraumatic, moderate acute distress. SKIN: Warm, pale, diaphoretic, intact, without rashes/lesions/ulcerations. HEAD: Normocephalic, atraumatic, normal hair distribution for gender/age. EYES: Normal conjunctiva, no exudates on lids/lashes. ENT: Nares patent, no circumoral cyanosis, no facial swelling NECK: Supple, trachea midline, painless cervical ROM. LUNGS/CHEST: Lungs CTA bilaterally-no rhonchi/rales/wheezes diffusely, labored respirations, normal A/P diameter, symmetrical expansion, no chest wall deformity HEART (CV/PV): Regular rate and rhythm without murmur, no peripheral edema, no JVD. ABDOMEN: Soft, non-distended, no guarding, diffuse lower abdominal tenderness with rebound tenderness, right CVA tenderness to percussion. MSK: Normal ROM, no swelling/deformity to bilateral UEs or LEs, moving all extremities without weakness, no cyanosis, spine midline without tenderness, normal curvature. NEURO: Mental Status AAOx4 - alert to person, place, time, events No facial droop, no forehead involvement. Motor: No focal weakness - strength 5/5 in bilateral UEs and LEs, proximal and distal, symmetric. Sensory: sensation intact to light touch globally. Gait NT PSYCH: euthymic, cooperative, pleasant, appropriate speech Course Vital Signs Vital signs: Vital Signs Temperature 36.8 C 08/18/25 15:42 Pulse 98 H 08/18/25 15:42 Respiratory Rate 16 08/18/25 15:42 Blood Pressure 77/48 L 08/18/25 15:42 Pulse Oximetry 94 08/18/25 15:42 Temperature 36.8 C 08/18/25 15:42 Temperature Source Oral 08/18/25 15:42 Pulse 98 H 08/18/25 15:42 Respiratory Rate 16 08/18/25 15:42 Blood Pressure 77/48 L 08/18/25 15:42 Blood Pressure Position Sitting 08/18/25 15:42 Pulse Oximetry 94 08/18/25 15:42 Oxygen Delivery Method Room Air 08/18/25 15:42 Oxygen Flow Rate 0 08/18/25 15:42 Medical Decision Making This dictation utilizes [id number] dictation software and may contain unedited grammatical errors. 60 year-old male presents to ED today by POV/ambulating, sent from , with a chief complaint of LLQ abdominal pain, nausea/vomiting/diarrhea with onset Monday- 2 days ago. Quality described as feels similar to prior kidney stone episodes, and endorses fatigue tied to poor PO intake, no radiation to fever, chest pain, shortness of breath, black/bloody diarrhea, urinary retention, hematuria, altered mentation. Severity is described as moderate to severe. Palliating factors include nothing specific. Provoking factors include nothing specific. Patients' medical history: Tobacco use, hyperlipidemia, anxiety. Family and social history: Lives at home alone, has a son nearby and his sister is present here in the ER, no recent travel or sick contacts, denies EtOH or IVDU. Pertinent exam findings / vital signs include right CVA tenderness, right lower quadrant tenderness with rebound tenderness, appears toxic, hypotensive 77/48 on arrival with tachycardia, benign pulmonary exam, no altered mentation. Differential / pathologies of concern include sepsis, appendicitis, ureteral stone, UTI, pyelonephritis, SBO. Diagnostic studies of: - CBC, CMP, lactate, lipase, magnesium, blood cultures, UA, CT ABD/pelvis without contrast due to creatinine. - CBC shows leukocytosis to 29.5 with left shift - Lactate 3.0 - CMP shows an HONORIO to 3.97 from a baseline of 1.1 last value in 2021 indicating acute renal failure - UA shows significant signs of infection with positive nitrates and 20-50 WBCs on micro - Lipase within normal limits - Magnesium within normal limits - Blood cultures and urine culture pending - CT ABD/pelvis without contrast shows an 8 mm stone in the proximal right ureter that is obstructing with hydronephrosis Interventions of: - Patient has been given 1 L LR, 1 L IVF NS and then started NS at 150 mL an hour, given IV Tylenol, Toradol, IV Zofran, 4.5 g IV Zosyn-his blood pressure improved with fluids without the need for vasopressors. - [place] Butts [place] [facility] [place], he recommends ER to ER transfer for stenting at 2 ED Course/Assessment/Plan: 60-year-old male presents with severe lower abdominal pain diffusely, he states it feels like a prior episode of renal stone, he is found to be in sepsis as well as acute renal failure with an infected obstructing right ureteral stone and UTI, he did not need pressors and he responded well to fluids, he is transferred [place] [facility] [place] ER for emergent stenting, confirmed adequate antibiotic coverage prior to transfer, patient's pain is well-controlled with Tylenol and Toradol, he can receive every 30 minute fentanyl via ALS and route. Disposition of sepsis, acute renal failure, right ureteral calculus, urinary tract infection. Patient verbalized understanding of the plan and return to ED criteria and engaged in shared decision making. Medical Records Medical records reviewed: Yes I reviewed the patient's medical records. Imaging Data Radiologic Study: Attestation: I personally reviewed and interpreted this imaging study as follows: Imaging: CT Scan Radiologist's impression: EXAM: CT ABDOMEN PELVIS WO CLINICAL HISTORY: septic, ABD pain, HONORIO. TECHNIQUE: Imaging Protocol: Axial computed tomography images with coronal and sagittal reformatted images were created and reviewed. Oral: / no COMPARISON: CT CT RENAL COLIC WO from 03/07/2022 FINDINGS: Lung Bases: Limited evaluation due to respiratory motion. There are increased densities at the lung bases, right greater than left, atelectasis versus pneumonia. Liver: Normal density. Liver cyst. No follow-up recommended. No suspicious mass. Gallbladder and biliary tract: No radiodense calculus or biliary dilation. Pancreas: Normal density. No abnormal calcifications or inflammatory process. Spleen: Normal. Kidneys: Normal size, contour and axis. 7 x 8 millimeter stone is present in the proximal right ureter causing mild hydronephrosis. Left renal cysts. No follow-up recommended. No suspicious masses seen. Adrenal glands: No masses seen. Lymph nodes: Within normal limits. Vasculature: Abdominal aorta non-dilated. Soft tissues: Unremarkable. Bladder: No wall thickening. No mass or calculi. Bowel: No obstruction or bowel wall thickening. Mild diverticulosis of the lower descending and sigmoid colon. No evidence of diverticulitis. Normal quantity of stool. The appendix is normal. Peritoneal cavity: No ascites. No focal collection. No mesenteric inflammatory response. Reproductive organs: Unremarkable. Bones: Unremarkable for age. IMPRESSION: 8 millimeter stone in the proximal right hydronephrosis. Lab Data Lab results reviewed: Yes I reviewed the patient's lab results. Labs: 08/18/25 19:30 Urine - Reflex from Ua Urine Culture - Pending 08/18/25 18:40 Blood Blood Culture - Pending 08/18/25 18:25 Blood Blood Culture - Pending Laboratory Tests Range/Units 08/18/25 08/18/25 15:55 19:30 WBC (4.4-10.8) 10^3/uL 29.56 H* RBC (4.36-5.78) 10^6/uL 5.25 Hgb (13.5-17.5) g/dL 16.6 Hct (40.0-50.0) % 47.2 MCV (80-95) fL 90 MCH (27.0-33.0) pg 31.6 MCHC (32.0-36.0) % 35.2 RDW (11.8-14.1) % 13.2 Plt Count (130-400) 10^3/uL 85 L MPV (8.0-11.0) fL 11.7 H Immature Gran % See Differential Neutrophils % % 62.0 Band Neutrophils % % 19 Lymphocytes % % 3.0 Atypical Lymphs % % 1 Monocytes % % 3.0 Eosinophils % % 0.0 Basophils % % 0.0 Metamyelocytes % 11 Myelocytes % 1 Nucleated RBC % (0.0-0.3) % 0.0 Absolute Neutrophils (1.2-6.7) 10^3/uL 23.94 H Absolute Lymphocytes (1.2-3.4) 10^3/uL 1.18 L Absolute Monocytes (0.1-0.8) 10^3/uL 0.89 H Absolute Eosinophils (0.0-0.7) 10^3/uL 0.00 Absolute Basophils (0.0-0.2) 10^3/uL 0.00 RBC Morphology Normal VBG Lactate (<or=2.0) mmol/L 3.0 H* Sodium (136-145) mmol/L 137 Potassium (3.5-5.1) mmol/L 4.0 Chloride (98-107) mmol/L 99 Carbon Dioxide (20.0-31.0) mmol/L 26.0 Anion Gap (3-11) mmol/L 11.7 H BUN (9-23) mg/dL 60 H Creatinine (0.73-1.18) mg/dL 3.97 H* Est GFR (CKD-EPI 2020) (mL/min/1.73m2) 15.41 Glucose (74-106) mg/dL 110 H Calcium (8.3-10.6) mg/dL 9.0 Magnesium (1.6-2.6) mg/dL 1.6 Total Bilirubin (0.2-1.2) mg/dL 1.3 H AST (<34) U/L 88 H ALT (10-49) U/L 34 Alkaline Phosphatase (46-116) U/L 74 Total Protein (5.7-8.2) g/dL 7.2 Albumin (3.2-5.0) g/dL 4.3 Lipase (<53) U/L 20 Urine Color (Yellow) Yellow Urine Clarity (Clear) Cloudy Urine pH (5-8) 5.0 Ur Specific [place] (1.005-1.025) 1.025 Urine Protein (Neg-Trace) mg/dL >=300 H Urine Ketones (Negative) mg/dL Trace H Urine Blood (Negative) Large H Urine Nitrite (Negative) Positive H Urine Bilirubin (Negative) Moderate H Urine Urobilinogen (Up to 0.2) mg/dL 1.0 H Ur Leukocyte Esterase (Negative) Small H Urine RBC (0-2) HPF 5-10 H Urine WBC (0-5) HPF 20-50 H Ur Epithelial Cells (Negative) HPF Rare Urine Crystals (Negative) HPF Negative Urine Bacteria (Negative) HPF Many Urine Casts (Negative) LPF 0-2 Hyaline Urine Mucus (Negative) Negative Ur Culture Indicated? Yes Urine Glucose (Negative) mg/dL Negative Critical Care Time Critical Care Time Critical Care Time: Yes Total Critical Care Time: 15 Attestation: Upon my evaluation, this patient had a high probability of imminent or life-threatening deterioration due to hypotension on arrival, which required my direct attention, intervention, and personal management. I have personally provided 15 minutes of critical care time exclusive of time spent on separately billable procedures. Time includes review of laboratory data, radiology results, discussion with consultants, and monitoring for potential decompensation. Interventions were performed as documented above, including monitoring of critical vital signs, ordering critical medications from bedside, and re-assessing effectiveness, repeating critical exam findings, and reviewing patients' chart. PFSH All Active Problems (Updated 08/18/25 @ 20:25 by BALDOMERO Herron) Urinary tract infection (Acute) Right ureteral calculus (Acute) Acute renal failure (Acute) Sepsis (Acute) Anxiety (Chronic) Hyperlipidemia, unspecified (Chronic) Tobacco use disorder (Chronic) Chewing tobacco Surgical History Repair of inguinal hernia (09/04/95) Family History Mother , COPD at age 50. No problems noted. Father , ?? 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
[2025-08-18] MEDS: Lactated Ringers 1,000 ML 1000 ML IV (16:01)
[2025-08-18 16:09] LABS: HCT 47.2 % (40.0-50.0); HGB 16.6 g/dL (13.5-17.5); MCH 31.6 pg (27.0-33.0); MCHC 35.2 % (32.0-36.0); MCV 90 fL (80-95); MPV 11.7 fL (8.0-11.0); RBC 5.25 10^6/uL (4.36-5.78); RDW 13.2 % (11.8-14.1); RDW-SD 43.7 fL
[2025-08-18 16:30] LABS: Lipase 20 U/L (<53)
[2025-08-18 16:36] LABS: Platelet Count 85 10^3/uL (130-400)
[2025-08-18 16:37] LABS: RBC Morphology Normal
[2025-08-18 16:39] LABS: WBC 29.56 10^3/uL (4.4-10.8)
[2025-08-18] MEDS: Normal Saline 1,000 ML 1000 ML IV (16:55)
[2025-08-18] MEDS: PIPERACILLIN/TAZO 4.5 GM in Normal Saline 100 ML IVPB (16:56)
[2025-08-18] MEDS: ACETAMINOPHEN 1,000 MG/100 ML BAG 400 MG IVPB (16:56)
[2025-08-18] MEDS: Ondansetron 4 MG/2 ML VIAL IVP (16:56)
[2025-08-18] MEDS: Ketorolac 15 MG/ML VIAL IVP (16:56)
[2025-08-18 17:00] LABS: ALT 34 U/L (10-49); AST 88 U/L (<34); Albumin 4.3 g/dL (3.2-5.0); Alkaline Phosphatase 74 U/L (46-116); Anion Gap 11.7 mmol/L (3-11); BUN 60 mg/dL (9-23); Bilirubin, Total 1.3 mg/dL (0.2-1.2); CO2 26.0 mmol/L (20.0-31.0); Calcium 9.0 mg/dL (8.3-10.6); Chloride 99 mmol/L (98-107); Glucose 110 mg/dL (74-106); Magnesium 1.6 mg/dL (1.6-2.6); Potassium 4.0 mmol/L (3.5-5.1); Sodium 137 mmol/L (136-145); Total Protein 7.2 g/dL (5.7-8.2)
--- NOTE | 2025-08-18 17:00 | DI.CT_ITS ---
Exam(s) CT ABDOMEN PELVIS WO EXAM: CT ABDOMEN PELVIS WO CLINICAL HISTORY: septic, ABD pain, HONORIO. TECHNIQUE: Imaging Protocol: Axial computed tomography images with coronal and sagittal reformatted images were created and reviewed. Oral: / no COMPARISON: CT CT RENAL COLIC WO from 03/07/2022 FINDINGS: Lung Bases: Limited evaluation due to respiratory motion. There are increased densities at the lung bases, right greater than left, atelectasis versus pneumonia. Liver: Normal density. Liver cyst. No follow-up recommended. No suspicious mass. Gallbladder and biliary tract: No radiodense calculus or biliary dilation. Pancreas: Normal density. No abnormal calcifications or inflammatory process. Spleen: Normal. Kidneys: Normal size, contour and axis. 7 x 8 millimeter stone is present in the proximal right ureter causing mild hydronephrosis. Left renal cysts. No follow-up recommended. No suspicious masses seen. Adrenal glands: No masses seen. Lymph nodes: Within normal limits. Vasculature: Abdominal aorta non-dilated. Soft tissues: Unremarkable. Bladder: No wall thickening. No mass or calculi. Bowel: No obstruction or bowel wall thickening. Mild diverticulosis of the lower descending and sigmoid colon. No evidence of diverticulitis. Normal quantity of stool. The appendix is normal. Peritoneal cavity: No ascites. No focal collection. No mesenteric inflammatory response. Reproductive organs: Unremarkable. Bones: Unremarkable for age. IMPRESSION: 8 millimeter stone in the proximal right hydronephrosis. RADIATION DOSE DELIVERED: Total DLP DATA REPOSITORY: All CT scans at this facility are submitted to the National Radiology Data Registry (NRDR) Dose Index Registry (DIR) with the [employer] (ACR). RADIATION OPTIMIZATION: All CT scans at this facility use at least one of these dose optimization techniques: automated exposure control; mA and/or kV adjustment per patient size (includes targeted exams where dose is matched to clinical indication); or iterative reconstruction.
[2025-08-18 19:55] LABS: Glucose Negative (Negative)
[2025-08-18 20:09] LABS: WBC 20-50 HPF (0-5)
[2025-08-18 20:10] LABS: C & S Indicated? Yes
[2025-08-18] MEDS: Normal Saline 1,000 ML 150 ML IV (20:30)
--- NOTE | 2025-08-19 07:45 | NUR.NOTE ---
Addendum entered by Elinor Vazquez 08/19/25 11:52: Faxed to [facility] the preliminary blood culture results that all 4 bottles are now positive for gram negative rods. Did call to be sure they are received, they are and the provider is currently reviewing them. Dr. Becker aware. Addendum entered by Lo Mayo 08/19/25 09:18: Fax to [facility]: fax #[phone] Addendum entered by Lo Mayo 08/19/25 08:35: Accessed chart to print blood culture result. Original Note: Positive Blood culture with gram negative rods, drawn on 08/18/2025. Result given to Dr. Becker. Nursing Note:
--- NOTE | 2025-08-20 09:12 | NUR.NOTE ---
Accessed Pt chart to print off positive urine results to Fax to [facility] where Pt was transferred.
== END 2025-08-18 21:45 | disposition short-term general hospital (02) ==
PROVIDERS: Emergency Provider Physician Assistant
DX: R10.32 Left lower quadrant pain (principal); R11.2 Nausea with vomiting, unspecified; R19.7 Diarrhea, unspecified; N17.9 Acute kidney failure, unspecified; N20.1 Calculus of ureter; N39.0 Urinary tract infection, site not specified; I95.9 Hypotension, unspecified
CPT/HCPCS: 36415; 51701; 80053; 83690; 87040; 87077; 96361; 96365; 96368; 96375; 99285; 74176; 81003; 81015; 83605; 83735; 85025; 87086; 87186; J0131; J1885; J2405; J2543